=== PATIENT | female | born 1990 | race Caucasian/White ===

== ENCOUNTER 2025-01-07 01:53 | Emergency (ER) | payer SELFPAY ==
[~2025-01-07] VITALS: Ht 154.9 cm; Wt 79.8 kg
[2025-01-07 03:23] LABS: PLATELET COUNT (AUTO) 388 K/uL (150-450); RED BLOOD CELL COUNT(AUTO) 4.33 MIL/uL (4.0-5.2); RED CELL DISTRIBUTION WIDTH 14.9 % (11.5-15.0); WHITE BLOOD COUNT (AUTO) 8.9 K/uL (4.3-11.0)
[2025-01-07 03:30] LABS: CALCIUM, SERUM 9.2 mg/dL (8.5-10.1); CREATININE 0.7 mg/dL (0.6-1.3); SODIUM SERUM 139.0 mmol/L (136-145); UREA NITROGEN, BLOOD 16.0 mg/dL (7-18)
[2025-01-07 03:40] LABS: PREGNANCY TEST SERUM QUAN 1.0 mIU/mL (0-6)
[2025-01-07 04:43] VITALS: BP 128/77; TEMP 97.9; O2SAT 99
== END 2025-01-07 04:43 | disposition home or self-care (01) ==
LOC: ER 02:18
DX: R07.89 Other chest pain (principal); R60.0 Localized edema; I10 Essential (primary) hypertension; Z88.8 Allergy status to other drugs, medicaments and biological substances
CPT/HCPCS: 36415; 71045-TC; 80048-TC; 84702-TC; 85025-TC